=== PATIENT | male | born 1970 | race Caucasian/White ===

== ENCOUNTER 2020-07-04 11:27 | Inpatient (IN) | payer OTHER ==
[2020-07-04 12:24] LABS: ALT 91 U/L (4-49); AST 243 U/L (17-59); African American GFR (CKD) >90 (>60 ml/min/1.73 sqM); Albumin 3.3 g/dL (3.5-5.0); Alkaline Phosphatase 359 U/L (38-126); Anion Gap 9 mmol/L; Blood Urea Nitrogen 15 mg/dL (9-20); Calcium 8.1 mg/dL (8.4-10.2); Carbon Dioxide 25 mmol/L (22-30); Chloride 97 mmol/L (98-107); Glucose 178 mg/dL (74-99); Magnesium 1.6 mg/dL (1.6-2.3); Non-African American GFR(CKD) >90 (>60 ml/min/1.73 sqM); Potassium 4.1 mmol/L (3.5-5.1); Sodium 131 mmol/L (137-145); Total Bilirubin 4.4 mg/dL (0.2-1.3); Total Protein 6.5 g/dL (6.3-8.2)
[2020-07-04 12:31] LABS: INR 1.3 (<1.2); Partial Thromboplastin Time 26.2 sec (22.0-30.0); Prothrombin Time 13.1 sec (9.0-12.0)
[2020-07-04 12:45] LABS: Basophils # (A) 0.1 k/uL (0-0.2); Basophils % (A) 1 %; Eosinophils % (A) 0 %; HCT 37.5 % (39.0-53.0); HGB 12.5 gm/dL (13.0-17.5); Hypochromasia Slight; Lymphocytes # (A) 1.3 k/uL (1.0-4.8); Lymphocytes % (A) 19 %; MCH 38.3 pg (25.0-35.0); MCHC 33.2 g/dL (31.0-37.0); MCV 115.3 fL (80.0-100.0); Macrocytosis Marked; Mean Platelet Volume 8.7; Monocytes # (A) 0.5 k/uL (0-1.0); Monocytes % (A) 7 %; Neutrophils % (A) 72 %; Platelet Count 106 k/uL (150-450); RBC 3.26 m/uL (4.30-5.90); RDW 15.4 % (11.5-15.5)
--- NOTE | 2020-07-04 12:53 | US ---
EXAMINATION TYPE: US liver DATE OF EXAM: 07/04/2020 COMPARISON: NONE CLINICAL HISTORY: mild lUQ tenderness/etoh abuse. Elevated liver enzymes, enlarged liver, abdomen romero n EXAM MEASUREMENTS: Liver Length: 22.0 cm Gallbladder Wall: 0.4 cm CBD: 0.3 cm Right Kidney: 11.4 x 4.4 x 5.0 cm Pancreas: obscured by overlying midline bowel gas Liver: enlarged, attenuating Gallbladder: hydropic, mildly thickened wall at 0.4cm Evidence for sonographic Feldman's sign: no CBD: visualized portions wnl, limited by overlying bowel gas Right Kidney: wnl IMPRESSION: 1. Hepatomegaly with underlying hepatic fatty infiltration. 2. Gallbladder hydrops with mild gallbladder wall thickening.
[2020-07-04] MEDS ORDERED: THIAMINE 100 MG/ML 2 ML VIAL IM STA (13:08)
[2020-07-04] MEDS ORDERED: LORazepam 2 MG/ML INJ IV PRN ×3 (13:08)
[2020-07-04 13:19] LABS: Anisocytosis (M) Present; Poikilocytosis (M) Present
--- NOTE | 2020-07-04 13:20 | ED ---
Recheck HPI - General Chief Complaint: Recheck/Abnormal Lab/Rx Stated Complaint: detoxing Time Seen by Provider: 07/04/20 11:40 Source: patient, family Mode of arrival: ambulatory Limitations: no limitations - History of Present Illness Initial Comments: 50-year-old male presenting today for chief complaint of medical clearance for alcohol rehab. Patient states that he told facility he had RUQ pain. Norma states on 06/21/2019 he has labs drawn outpatient. Today he attempted to check into rehabiliation center and he discussed the labs values from his outpatient visit and they told him he needed to come to the ER for evaluation prior to checking into the ETOH detoxification program. Patient denies nausea, vomiting, he denies current abdominal pain, fevers. Denies dark or bloody stools> Patient dose on gross exam appear to have icterus and abdominal distention. Patient denies chest pain/dyspnea. Pt does admit to parathesias (tingling) of the hands and feet that has been going on for "months". Denies weakness, headaches, falls/trauma. He denies additional complaints. Upon arrival patient appears well nontoxic in no acute distress. - Related Data Home Medications Medication Instructions Recorded Confirmed No Known Home Medications 07/04/20 07/04/20 Allergies Allergy/AdvReac Type Severity Reaction Status Date / Time No Known Allergies Allergy Verified 07/04/20 12:30 Review of Systems ROS Statement: Those systems with pertinent positive or pertinent negative responses have been documented in the HPI. ROS Other: All systems not noted in ROS Statement are negative. Past Medical History Additional Past Medical History / Comment(s): liver disease History of Any Multi-Drug Resistant Organisms: None Reported Past Surgical History: No Surgical Hx Reported Past Psychological History: No Psychological Hx Reported Smoking Status: Current every day smoker Past Alcohol Use History: Abuse, Daily, Heavy Past Drug Use History: None Reported General Exam - General Exam Comments Initial Comments: General: The patient is awake and alert, in no distress Eye: +3 mm pupils are equal, round and reactive to light, extra-ocular movements are intact. No nystagmus. There is normal conjunctiva bilaterally. icterus. Ears, nose, mouth and throat: There are moist mucous membranes and no oral lesions. Neck: The neck is supple, there is no tenderness or JVD. Cardiovascular: There is a regular rate and rhythm. No murmur, rub or gallop is appreciated. Respiratory: Lungs are clear to auscultation, respirations are non-labored, breath sounds are equal. No wheezes, stridor, rales, or rhonchi. Gastrointestinal: Distended abdomen, mild RUQ Pain, (-) murphys abdomen without masses. liver enlargement. There is no rebound or guarding present. = Musculoskeletal: Normal ROM, no tenderness. Strength 5/5. Sensation intact. Radial pulses equal bilaterally 2+. Neurological: A&O x 3. CN II-XII intact grossly, There are no obvious motor or sensory deficits. Coordination appears grossly intact. Speech is normal. Skin: Skin is warm and dry and no rashes or lesions are noted. Psychiatric: Cooperative, appropriate mood & affect, normal judgment. Limitations: no limitations Course Vital Signs 07/04/20 07/04/20 11:31 13:58 Temperature 98.4 F Pulse Rate 107 H 81 Respiratory 18 18 Rate Blood Pressure 135/91 130/95 O2 Sat by Pulse 96 98 Oximetry Medical Decision Making - Medical Decision Making Bilirubin 4 mild abdominal pain with distention liver enlargement. patient has increased coagulation slightly. he is jaundice. pt us hydrops with mild thickening, no fevers. no white count. mild pain on exam. suspeted findings from chronic disease. pt will be admitted for further evaluation by GI due to severe liver disease. Dr Jackson agreeable to care plan and admission. - Lab Data Result diagrams: 07/04/20 12:02 07/04/20 12:02 Lab Results 07/04/20 07/04/20 07/04/20 Range/Units 12:02 12:02 12:02 WBC 7.0 (3.8-10.6) k/uL RBC 3.26 L (4.30-5.90) m/uL Hgb 12.5 L (13.0-17.5) gm/dL Hct 37.5 L (39.0-53.0) % MCV 115.3 H (80.0-100.0) fL MCH 38.3 H (25.0-35.0) pg MCHC 33.2 (31.0-37.0) g/dL RDW 15.4 (11.5-15.5) % Plt Count 106 L (150-450) k/uL MPV 8.7 Neutrophils % 72 % Lymphocytes % 19 % Monocytes % 7 % Eosinophils % 0 % Basophils % 1 % Neutrophils # 5.0 (1.3-7.7) k/uL Lymphocytes # 1.3 (1.0-4.8) k/uL Monocytes # 0.5 (0-1.0) k/uL Eosinophils # 0.0 (0-0.7) k/uL Basophils # 0.1 (0-0.2) k/uL Manual Slide Review Performed Hypochromasia Slight Poikilocytosis (manual Present Anisocytosis (manual) Present Macrocytosis Marked A PT 13.1 H (9.0-12.0) sec INR 1.3 H (<1.2) APTT 26.2 (22.0-30.0) sec Sodium 131 L (137-145) mmol/L Potassium 4.1 (3.5-5.1) mmol/L Chloride 97 L (98-107) mmol/L Carbon Dioxide 25 (22-30) mmol/L Anion Gap 9 mmol/L BUN 15 (9-20) mg/dL Creatinine 0.50 L (0.66-1.25) mg/dL Est GFR (CKD-EPI)AfAm >90 (>60 ml/min/1.73 sqM) Est GFR (CKD-EPI)NonAf >90 (>60 ml/min/1.73 sqM) Glucose 178 H (74-99) mg/dL Calcium 8.1 L (8.4-10.2) mg/dL Magnesium 1.6 (1.6-2.3) mg/dL Total Bilirubin 4.4 H (0.2-1.3) mg/dL AST 243 H (17-59) U/L ALT 91 H (4-49) U/L Alkaline Phosphatase 359 H (38-126) U/L Total Protein 6.5 (6.3-8.2) g/dL Albumin 3.3 L (3.5-5.0) g/dL Disposition Clinical Impression: Abdominal pain, Liver disease, Elevated bilirubin, Elevated liver enzymes Disposition: ADMITTED IP TO THIS [facility] Condition: Stable Is patient prescribed a controlled substance at d/c from ED?: No Referrals: None,Stated [Primary Care Provider] - 1-2 days Time of Disposition: 14:01 Decision to Admit Reason: Admit from EC Decision Date: 07/04/20 Decision Time: 14:02
[2020-07-04] MEDS ORDERED: NALOXONE 0.4 MG/ML 1 ML VIAL IV PRN (13:52)
[2020-07-04] MEDS: FOLIC ACID 1 MG TAB PO SCH (14:22)
[2020-07-04] MEDS: SODIUM CHLORIDE 0.9% 1,000 ML IV SCH (15:47)
[2020-07-04] MEDS ORDERED: TEMAZEPAM 15 MG CAP PO PRN (17:34)
[2020-07-04] MEDS: PANTOPRAZOLE 40 MG/10 ML VIAL IVP SCH (17:54)
[2020-07-04] MEDS: THIAMINE 100 MG TAB PO SCH (17:54)
[2020-07-04 18:10] LABS: Amylase 40 U/L (30-110); Lipase 148 U/L (23-300)
--- NOTE | 2020-07-04 18:32 | XR ---
EXAMINATION TYPE: XR chest 1V portable DATE OF EXAM: 07/04/2020 COMPARISON: NONE HISTORY: Right upper quadrant pain TECHNIQUE: Single view FINDINGS: Heart and mediastinum are normal. Lungs are clear. Diaphragm is normal. Bony thorax appears normal. IMPRESSION: Normal chest.
--- NOTE | 2020-07-04 20:15 | HP ---
HISTORY AND PHYSICAL DATE OF SERVICE: 07/04/2020 CHIEF COMPLAINTS: Hepatitis and medical clearance for rehab. HISTORY OF PRESENT ILLNESS: This 50-year-old gentleman with a past medical history of multiple medical issues, including ETOH abuse with numbness and history of smoking, not being followed by a primary physician in the outpatient setting, is living in the [facility]. The patient was drinking about a fifth of alcohol and because of abdominal discomfort and other issues, the patient went to an urgent care center in [place], where the patient was told that he had jaundice. However, the patient decided to check into [facility], and because of the outpatient abnormal labs, the patient was asked to return to the ER. The patient was also complaining of vague abdominal pain. The patient has tremors, also. There is no history of any fever, rigor or chills. No history of headache, loss of consciousness, seizures at this time. PAST MEDICAL HISTORY: History of EtOH abuse, history of polysubstance abuse. MEDICATIONS: None. ALLERGIES: NONE. FAMILY HISTORY: The patient is adopted. SOCIAL HISTORY: History of alcohol as mentioned. REVIEW OF SYSTEMS: ENT: No diminished hearing. No diminished vision. CARDIOVASCULAR SYSTEM: As mentioned earlier. RESPIRATORY SYSTEM: As mentioned earlier. GI: As mentioned earlier. : No dysuria or retention. NERVOUS SYSTEM: As mentioned earlier. ALLERGY/IMMUNOLOGY: No asthma, hayfever. MUSCULOSKELETAL: As mentioned earlier. HEMATOLOGY/ONCOLOGY: No history of anemia. ENDOCRINE: No history of diabetes, hypothyroidism. CONSTITUTIONAL: As mentioned earlier. DERMATOLOGY: Negative. RHEUMATOLOGY: Negative. PSYCHIATRY: As mentioned earlier. PHYSICAL EXAMINATION: Patient alert and oriented x3. Pulse 81, blood pressure 130/95, respiration 18, temperature 98.4, pulse ox 98% on room air. HEENT: Conjunctivae normal. NECK: No jugular venous distention. CARDIOVASCULAR SYSTEM: S1, S2 muffled. RESPIRATORY SYSTEM: Breath sounds diminished at the bases. A few scattered rhonchi and crackles. ABDOMEN: Soft, non-tender. No mass palpable. Mild diffuse discomfort in the upper quadrants. LEGS: No edema. No swelling. NERVOUS SYSTEM: Higher functions as mentioned earlier. Moves all 4 limbs. No focal motor or sensory deficit. LYMPHATICS: No lymph node palpable in neck, axillae or groin. SKIN: No ulcer, rash, bleeding. JOINTS: No active deforming arthropathy. LABS: WBC 7, hemoglobin 12.5, platelets are 106. INR 1.3. Sodium 131. Total bilirubin is 4.4, AST is 243 and ALT is 91, alkaline phosphatase 315. Albumin 3.3. ASSESSMENT: 1. Acute hepatitis, possibly alcoholic hepatitis. 2. Elevated AST and ALT, possibly alcoholic hepatitis. 3. Elevated alkaline phosphatase. 4. Hydrops gallbladder as well as gallbladder thickening. 5. Mild coagulopathy secondary to chronic liver disease. 6. Anemia, macrocytic. 7. Thrombocytopenia. 8. History of ETOH. 9. History of nicotine dependence. 10.FULL CODE. RECOMMENDATIONS AND DISCUSSION: In this 50-year-old gentleman who presented with multiple complex medical issues, we will monitor the patient closely. Will look for any DTs and alcohol withdrawal symptoms. Otherwise, labs will be repeated. Avoid all nephrotoxic medications, including Tylenol. Gastroenterology has seen the patient. Will continue to monitor. There is no evidence of any encephalopathy at this time. The prognosis is guarded because of multiple complex medical issues. Further recommendations to follow. I have recommended that the patient follow up with a primary physician closely after discharge. Symptomatic treatment also will be provided. MMODL / IJN: [id number] /
[2020-07-04 20:19] LABS: Appearance,Urine Clear (Clear); Bilirubin,Urine Negative (Negative); Blood,Urine Negative (Negative); Color,Urine Yellow; Glucose,Urine (UA) Negative (Negative); Ketones,Urine Negative (Negative); Leukocyte Esterase,Urine Negative (Negative); Nitrite,Urine Negative (Negative); Protein,Urine Negative (Negative); Specific Gravity,Urine 1.012 (1.001-1.035); Urobilinogen,Urine <2.0 mg/dL (<2.0)
--- NOTE | 2020-07-04 22:17 | CONS ---
CONSULTATION DATE OF DICTATION: 07/04/2020 REASON FOR CONSULTATION: Elevated LFTs and jaundice. HISTORY OF PRESENT ILLNESS: The patient is a 50-year-old pleasant white male with a history of heavy alcohol abuse who was sent from [facility], wherein the patient wanted to get admitted for alcohol rehabilitation. Apparently while he was there he had some labs done and was noted to have elevated LFTs and he was complaining of some right upper quadrant abdominal pain, and he was advised to go to the emergency room at [facility]. The patient states that he went to the Urgent Care Center in [place] about 2 weeks ago and was told his liver enzymes were elevated. At present he is complaining of some right upper quadrant abdominal pain, some nausea but no emesis. No rectal bleeding or melena. No fever, chills or night sweats. He denies any abdominal distention. He has been drinking heavily for the last 25 years. He drinks about a fifth a day. PAST MEDICAL HISTORY: Unremarkable other than heavy alcohol abuse. PAST SURGICAL HISTORY: Unremarkable. HOME MEDICATIONS: None. ALLERGIES: NO KNOWN DRUG ALLERGIES. SOCIAL HISTORY: Heavy alcohol abuse, as mentioned above. Chronic smoker. FAMILY HISTORY: Unremarkable. REVIEW OF SYSTEMS: CARDIOPULMONARY: No chest pain or shortness of breath. GENITOURINARY: No dysuria or hematuria except for yellowish discoloration of the urine. HEMATOLOGY: Unremarkable. PSYCHIATRY: Unremarkable. ENT/VISION: Unremarkable. CONSTITUTIONAL: No recent weight loss. No fever, chills, night sweats. PHYSICAL EXAMINATION: He appears comfortable. No apparent distress. Vital signs are stable. Blood pressure is 133/89, pulse rate 88, temperature 97.7. HEENT examination unremarkable. Conjunctivae pink. Sclerae slightly icteric. Oral cavity no lesions. NECK: No JVD or lymph node enlargement. CHEST: Clear to auscultation. HEART: Regular rate and rhythm. ABDOMEN: Soft. Bowel sounds are positive. No organomegaly. There is tenderness in the right upper quadrant area. Liver was slightly enlarged. No free fluid noted. EXTREMITIES: No pedal edema. NEUROLOGIC: Alert and oriented x3. No focal deficits. LABS/IMAGING: WBC 7, hemoglobin 12.5, MCV 115, platelets 106. PT and INR 1.3. AST 243, ALT 91, T- bilirubin 4.4, alkaline phosphatase 359. Albumin 3.3. Coronavirus PCR is negative. Ultrasound of the liver did show evidence of hepatomegaly with fatty infiltration of the liver and mild gallbladder wall thickening. IMPRESSION: 1. This is a patient with history of heavy alcohol abuse, admitted to the hospital with elevated liver function tests, mild jaundice and right upper quadrant abdominal pain, all of which are consistent with acute alcoholic hepatitis superimposed on underlying cirrhosis of the liver. The patient has history of heavy alcohol abuse for more than 25 years' duration and drinks a fifth a day. 2. Mild thrombocytopenia secondary to portal hypertension from underlying chronic liver disease. 3. History of heavy alcohol abuse. 4. Macrocytic anemia. RECOMMENDATIONS: 1. Obtain hepatitis serologies for A, B and C. 2. Start him on a regular diet. 3. Monitor closely for DTs. 4. Continue with vitamin supplements. 5. Advance diet as tolerated. 6. I had a lengthy discussion with the patient regarding the importance of abstinence from alcohol, given the underlying advanced liver disease. 7. Will follow with you closely. Thank you for this consultation. MMMARIANL / IJN: [id number] /
[2020-07-05] MEDS: SODIUM CHLORIDE 0.9% 1,000 ML IV SCH ×2 (00:39→12:43)
[2020-07-05 05:36] LABS: Hepatitis A Antibody IgM Non-Reactive (Non-Reactive); Hepatitis B Core IgM Non-Reactive (Non-Reactive); Hepatitis B Surface Antigen Non-Reactive (Non-Reactive); Hepatitis C IgG Antibody Non-Reactive (Non-Reactive)
[2020-07-05] MEDS: THIAMINE 100 MG TAB PO SCH ×2 (08:34→17:13)
[2020-07-05] MEDS: PANTOPRAZOLE 40 MG/10 ML VIAL IVP SCH (08:34)
[2020-07-05] MEDS: FOLIC ACID 1 MG TAB PO SCH (08:34)
[2020-07-05 09:14] LABS: HCT 29.9 % (39.6-50.0); HGB 10.1 g/dL (13.0-17.0); MCH 38.7 pg (27.0-32.0); MCHC 33.8 g/dL (32.0-37.0); MCV 114.6 fL (80.0-97.0); Mean Platelet Volume 12.3 fL (9.5-12.2); Platelet Count 104 X 10*3/uL (140-440); RBC 2.61 X 10*6/uL (4.40-5.60); RDW 13.3 % (11.5-14.5); WBC 5.08 X 10*3/uL (4.50-10.00)
[2020-07-05 10:13] LABS: African American GFR (CKD) 137.8 (60.0-200.0); Albumin 2.9 g/dL (3.80-4.90); Albumin/Globulin Ratio 1.53 (1.60-3.17); Anion Gap 6.6 mmol/L (4.00-12.00); Bilirubin, Conjugated 3.3 mg/dL (0.20-0.40); Bilirubin,Unconjugated 1.2 mg/dL; Calcium 8.2 mg/dL (8.7-10.3); Carbon Dioxide 27.4 mmol/L (21.6-31.8); Globulin 1.9 g/dL (1.6-3.3); Non-African American GFR(CKD) 118.9 (60.0-200.0); Potassium 4.1 mmol/L (3.5-5.5); Total Bilirubin 4.5 mg/dL (0.2-1.2); Total Protein 4.8 g/dL (6.2-8.2)
[2020-07-05 10:58] LABS: Basophils # (A) 0.06 X 10*3/uL (0.00-0.10); Basophils % (A) 1.2 %; Eosinophils # (A) 0.05 X 10*3/uL (0.04-0.35); Lymphocytes # (A) 1.44 X 10*3/uL (0.90-5.00); Lymphocytes % (A) 28.3 %; Macrocytosis (M) 3+; Monocytes # (A) 0.51 X 10*3/uL (0.20-1.00); Neutrophils # (A) 2.99 X 10*3/uL (1.80-7.70); Neutrophils % (A) 58.9 %; Target Cells 2+
--- NOTE | 2020-07-05 12:40 | P.PN ---
Subjective Progress Note Date: 07/06/20 Principal diagnosis: elevated liver function tests, history of EtOH abuse C 50-year-old pleasant white male patient with a history of heavy alcohol abuse who was sent in from [facility] or the patient wanted get admitted for alcohol rehabilitation. Apparently while he was there he was reporting some right upper quadrant discomfort and had some labs done that showed elevated liver enzymes, for which he was sent to the emergency department. Today he states his abdominal and has improved. He still states he has some dull right upper quadrant discomfort. He denies any nausea or vomiting. Denies any previous knowledge of any liver disease. And had admitted to drinking a fifth a day for at least the last 5-10 years. Objective - Vital Signs Vital signs: Vital Signs Temp 98.9 F 07/05/20 08:58 Pulse 69 07/05/20 08:58 Resp 17 07/05/20 08:58 BP 124/84 07/05/20 08:58 Pulse Ox 98 07/05/20 08:58 Intake & Output 07/04/20 07/05/20 07/05/20 18:59 06:59 18:59 Intake Total 1200 Balance 1200 Weight 76.204 kg Intake: Intake, IV Titration 1200 Amount Sodium Chloride 0.9% 1, 1200 000 ml @ 100 mls/hr IV . Q10H [facility] Rx#:[id number] Other: Voiding Method Toilet Toilet - Exam General appearance: The patient is alert, oriented, in no acute distress. HET: Head is normocephalic and atraumatic. Conjunctiva pink. Sclera mildly icteric. Neck: Supple without lymphadenopathy. Abdomen: Soft, nontender, nondistended with bowel sounds. No guarding or rigidity. Extremities: Skin mildly jaundiced. No pedal edema Neurological: No focal deficits. Alert and oriented 3. - Labs CBC & Chem 7: 07/05/20 05:54 07/05/20 05:54 Labs: Abnormal Lab Results - Last 24 Hours (Table) 07/04/20 07/04/20 07/04/20 Range/Units 12:02 12:02 12:02 RBC 3.26 L (4.30-5.90) m/uL Hgb 12.5 L (13.0-17.5) gm/dL Hct 37.5 L (39.0-53.0) % MCV 115.3 H (80.0-100.0) fL MCH 38.3 H (25.0-35.0) pg Plt Count 106 L (150-450) k/uL MPV (9.5-12.2) fL Macrocytosis Marked A PT 13.1 H (9.0-12.0) sec INR 1.3 H (<1.2) Sodium 131 L (137-145) mmol/L Chloride 97 L (98-107) mmol/L Creatinine 0.50 L (0.66-1.25) mg/dL Glucose 178 H (74-99) mg/dL Calcium 8.1 L (8.4-10.2) mg/dL Total Bilirubin 4.4 H (0.2-1.3) mg/dL AST 243 H (17-59) U/L ALT 91 H (4-49) U/L Alkaline Phosphatase 359 H (38-126) U/L Albumin 3.3 L (3.5-5.0) g/dL 07/05/20 Range/Units 05:54 RBC 2.61 L (4.30-5.90) m/uL Hgb 10.1 L (13.0-17.5) gm/dL Hct 29.9 L (39.0-53.0) % MCV 114.6 H (80.0-100.0) fL MCH 38.7 H (25.0-35.0) pg Plt Count 104 L (150-450) k/uL MPV 12.3 H (9.5-12.2) fL Macrocytosis PT (9.0-12.0) sec INR (<1.2) Sodium (137-145) mmol/L Chloride (98-107) mmol/L Creatinine (0.66-1.25) mg/dL Glucose (74-99) mg/dL Calcium (8.4-10.2) mg/dL Total Bilirubin (0.2-1.3) mg/dL AST (17-59) U/L ALT (4-49) U/L Alkaline Phosphatase (38-126) U/L Albumin (3.5-5.0) g/dL Assessment and Plan (1) Elevated liver enzymes Narrative/Plan: This is a 50-year-old male patient with a history of heavy alcohol abuse admitted to the hospital with elevated liver function tests, mild jaundice and right upper quadrant abdominal pain. The symptoms are consistent with acute alcoholic hepatitis superimposed on underlying cirrhosis of the liver. The patient has a history of heavy alcohol abuse or more than 25 years duration drinks a fifth a day. Current Visit: Yes Status: Acute Code(s): R74.8 - ABNORMAL LEVELS OF OTHER SERUM ENZYMES SNOMED Code(s): 296554858 (2) Alcohol abuse Current Visit: Yes Status: Acute Code(s): F10.10 - ALCOHOL ABUSE, UNCOM PLICATED SNOMED Code(s): 99003937 (3) Elevated bilirubin Current Visit: Yes Status: Acute Code(s): R17 - UNSPECIFIED JAUNDICE SNOMED Code(s): 44529477 (4) Thrombocytopenia Narrative/Plan: Mild thrombocytopenia secondary to portal hypertension from underlying chronic liver disease Current Visit: Yes Status: Acute Code(s): D69.6 - THROMBOCYTOPENIA, UNSPECIFIED SNOMED Code(s): 912662176 (5) Macrocytic anemia Current Visit: Yes Status: Acute Code(s): D53.9 - NUTRITIONAL ANEMIA, UNSPECIFIED SNOMED Code(s): 49539095 Plan: 1. Supportive care 2. Regular diet 3. Hepatitis serology for A, B, and C ordered and reviewed 4. Monitor closely for alcohol withdrawal and DTs 5. Continue with vitamin supplements 6. Recommended alcohol abstinence, discussion with had with the patient regarding the importance of abstinence from alcohol given the underlying advanced liver disease. Thank you for this consultation, we will follow with you closely. Dr. Beatrice Preston I agree with the dictator's note, documented as a scribe by Yas Gomez.
[2020-07-05] MEDS: MULTIVITAMINS, THERA 1 EACH TAB PO SCH (12:43)
[2020-07-05] MEDS: IOPAMIDOL CONTRAST (ORAL USE) VIAL PO PRN ×2 (18:27→19:01)
--- NOTE | 2020-07-05 18:56 | PN ---
PROGRESS NOTE DATE OF SERVICE: 07/05/2020 This 50-year-old gentleman who was admitted with acute alcoholic hepatitis also had possible early delirium tremens. The patient is being closely monitored. No chest pain. No palpitations. No fever. The potassium is 4.1, and bilirubin today is 4.5, mostly conjugated bilirubin. AST and ALT were also elevated. The UA is unremarkable. Hepatitis panel is negative. COVID-19 is also negative. PHYSICAL EXAMINATION: Alert and oriented x3. Pulse is 80, blood pressure 115/81, respiration 17, temperature 98.2, pulse ox 96% on room air. HEENT: Conjunctivae mildly icteric. NECK: No jugular venous distention. CARDIOVASCULAR SYSTEM: S1, S2 muffled. RESPIRATORY SYSTEM: Breath sounds diminished at the bases. A few scattered rhonchi and crackles. ABDOMEN: Soft. Hepatomegaly and tenderness present. NERVOUS SYSTEM: No focal deficit. LABS: Hemoglobin 10.1, platelets are 104. Other labs are noted. ASSESSMENT: 1. Acute hepatitis, possibly alcoholic hepatitis with abdominal pain. 2. Early delirium tremens on presentation. 3. Elevated AST and ALT; acute alcoholic hepatitis. 4. Hepatomegaly. 5. Elevated alkaline phosphatase. 6. Hydrops gallbladder as well as gallbladder thickening. 7. Mild coagulopathy secondary to chronic liver disease. 8. Anemia, macrocytic. 9. Thrombocytopenia. 10.History of ETOH. 11.History of nicotine dependence. 12.FULL CODE. RECOMMENDATIONS AND DISCUSSION: I recommend to continue current medications, continue with the monitoring, symptomatic treatment. Continue the diet. Repeat labs. I would also recommend a surgical evaluation because of the hydrops gallbladder and continue to monitor. Guarded prognosis. Further recommendations to follow. Liver ultrasound noted. MMODL / IJN: [id number] /
--- NOTE | 2020-07-05 20:06 | CT ---
EXAMINATION TYPE: CT abdomen pelvis wo con DATE OF EXAM: 07/05/2020 COMPARISON: None HISTORY: Abdominal pain, hepatomegaly CT DLP: 807 mGycm Automated exposure control for dose reduction was used. Images obtained from the diaphragm to the floor the pelvis with oral contrast only. The lung bases are clear. There is no pleural effusion. Heart size is normal. There is no pericardial effusion. Liver spleen pancreas gallbladder appear intact. Liver is enlarged and measures 25 cm in length. Bile ducts are not dilated. There is no adrenal mass. Kidneys have normal size and contour. There is no hydronephrosis. Ureters a re not dilated. There is no retroperitoneal adenopathy. The bladder distends smoothly. There is small amount of free fluid in the cul-de-sac. There is normal contrast opacification of the small bowel. T he appendix appears normal. Terminal ileum appears normal. The lumbar vertebra have normal spacing and alignment. There is no compression fracture. There is jaja ateral L5 spondylolysis without significant spondylolisthesis. Bony pelvis is intact. The hip joints are intact. IMPRESSION: Normal appendix. Hepatomegaly. No acute abnormality of the abdomen pelvis.
[2020-07-06] MEDS: SODIUM CHLORIDE 0.9% 1,000 ML IV SCH ×2 (03:51→17:15)
[2020-07-06] MEDS: FOLIC ACID 1 MG TAB PO SCH (07:25)
[2020-07-06] MEDS: THIAMINE 100 MG TAB PO SCH ×2 (07:25→17:15)
[2020-07-06] MEDS: PANTOPRAZOLE 40 MG/10 ML VIAL IVP SCH (08:12)
[2020-07-06] MEDS: MULTIVITAMINS, THERA 1 EACH TAB PO SCH (08:13)
--- NOTE | 2020-07-06 11:15 | P.PN ---
Subjective Progress Note Date: 07/06/20 Principal diagnosis: elevated liver function tests, history of EtOH abuse C 50-year-old pleasant white male patient with a history of heavy alcohol abuse who was sent in from [facility] or the patient wanted get admitted for alcohol rehabilitation. Apparently while he was there he was reporting some right upper quadrant discomfort and had some labs done that showed elevated liver enzymes, for which he was sent to the emergency department. Today he states his abdominal and has improved. He still states he has some dull right upper quadrant discomfort, but states it continues to improve. He denies any nausea or vomiting. He states he has not felt shaky, anxious, felt like he is been going through withdrawal. Plan is for discharge to [facility] for rehab. Objective - Vital Signs Vital signs: Vital Signs Temp 97.9 F 07/06/20 07:29 Pulse 77 07/06/20 09:58 Resp 17 07/06/20 07:29 BP 109/71 07/06/20 07:29 Pulse Ox 98 07/06/20 07:29 Intake & Output 07/05/20 07/06/20 07/06/20 18:59 06:59 18:59 Intake Total 1200 1200 Balance 1200 1200 Intake: Intake, IV Titration 1200 1200 Amount Sodium Chloride 0.9% 1, 1200 1200 000 ml @ 100 mls/hr IV . Q10H [facility] Rx#:[id number] Other: Voiding Method Toilet Toilet Toilet # Voids 5 - Exam General appearance: The patient is alert, oriented, in no acute distress. HET: Head is normocephalic and atraumatic. Conjunctiva pink. Sclera mildly icteric. Neck: Supple without lymphadenopathy. Abdomen: Soft, nontender, nondistended with bowel sounds. No guarding or rigidity. Extremities: Skin mildly jaundiced. No pedal edema Neurological: No focal deficits. Alert and oriented 3. - Labs CBC & Chem 7: 07/05/20 05:54 07/05/20 05:54 Assessment and Plan (1) Elevated liver enzymes Narrative/Plan: This is a 50-year-old male patient with a history of heavy alcohol abuse admitted to the hospital with elevated liver function tests, mild jaundice and right upper quadrant abdominal pain. The symptoms are consistent with acute alcoholic hepatitis superimposed on underlying cirrhosis of the liver. The p atient has a history of heavy alcohol abuse or more than 25 years duration drinks a fifth a day. Current Visit: Yes Status: Acute Code(s): R74.8 - ABNORMAL LEVELS OF OTHER SERUM ENZYMES SNOMED Code(s): 513110375 (2) Alcohol abuse Current Visit: Yes Status: Acute Code(s): F10.10 - ALCOHOL ABUSE, U NCOMPLICATED SNOMED Code(s): 90566666 (3) Elevated bilirubin Current Visit: Yes Status: Acute Code(s): R17 - UNSPECIFIED JAUNDICE SNOMED Code(s): 03252769 (4) Thrombocytopenia Narrative/Plan: Mild thrombocytopenia secondary to portal hypertension from underlying chronic liver disease Current Visit: Yes Status: Acute Code(s): D69.6 - THROMBOCYTOPENIA, UNSPECIFIED SNOMED Code(s): 023547666 (5) Macrocytic anemia Current Visit: Yes Status: Acute Code(s): D53.9 - NUTRITIONAL ANEMIA, UNSPECIFIED SNOMED Code(s): 84164170 Plan: 1. Supportive care 2. Regular diet 3. Hepatitis serology for A, B, and C ordered and reviewed 4. Monitor closely for alcohol withdrawal and DTs 5. Continue with vitamin supplements 6. Recommended alcohol abstinence, discussion was had with the patient regarding the importance of abstinence from alcohol given the underlying advanced liver disease. Thank you for this consultation, we will sign off at this time. Patient is to have outpatient follow-up within the next few weeks following rehab for continued monitoring of LFTs. Dr. Beatrice Preston I agree with the dictator's note, documented as a scribe by Yas Gomez.
[2020-07-06 11:25] LABS: Basophils # (A) 0.03 X 10*3/uL (0.00-0.10); Basophils % (A) 0.6 %; Eosinophils # (A) 0.03 X 10*3/uL (0.04-0.35); Eosinophils % (A) 0.6 %; HCT 28.9 % (39.6-50.0); HGB 9.8 g/dL (13.0-17.0); Lymphocytes # (A) 1.41 X 10*3/uL (0.90-5.00); MCH 38.7 pg (27.0-32.0); MCHC 33.9 g/dL (32.0-37.0); MCV 114.2 fL (80.0-97.0); Mean Platelet Volume 12.1 fL (9.5-12.2); Monocytes # (A) 0.41 X 10*3/uL (0.20-1.00); Monocytes % (A) 8.7 %; Neutrophils # (A) 2.78 X 10*3/uL (1.80-7.70); Neutrophils % (A) 59.2 %; Platelet Count 118 X 10*3/uL (140-440); RBC 2.53 X 10*6/uL (4.40-5.60); RDW 13.3 % (11.5-14.5)
[2020-07-06] MEDS: IBUPROFEN 400 MG TAB PO PRN (12:09)
[2020-07-06 12:25] LABS: African American GFR (CKD) 162.8 (60.0-200.0); Albumin 2.9 g/dL (3.80-4.90); Albumin/Globulin Ratio 1.45 (1.60-3.17); Anion Gap 6.8 mmol/L (4.00-12.00); BUN/Creat Ratio 17.5 Ratio (12.00-20.00); Calcium 8.2 mg/dL (8.7-10.3); Carbon Dioxide 26.2 mmol/L (21.6-31.8); Non-African American GFR(CKD) 140.5 (60.0-200.0); Total Bilirubin 3.7 mg/dL (0.3-1.2); Total Protein 4.9 g/dL (6.2-8.2)
[2020-07-06] MEDS: SULFAMETHOX-TMP 800-160MG 1 EACH TAB PO SCH ×2 (12:25→21:23)
--- NOTE | 2020-07-06 13:00 | P.GSCN ---
History of Present Illness Consult date: 07/06/20 History of present illness: CHIEF COMPLAINT: Right upper quadrant abdominal pain HISTORY OF PRESENT ILLNESS: This is a 50-year-old male with a known history of alcohol abuse. Patient presented to the emergency room with complaints of right upper quadrant pain. He was sent from [place] where he was admitted for alcohol rehabilitation. Patient reports having right upper quadrant pain for about 2-3 weeks. He notices more pain with movement. He denies any nausea or vomiting. The pain does not get worse after eating. He denies any fever or chills or sweats. He had a liver ultrasound completed which showed gallbladder hydrops with mild gallbladder wall thickening and hepatomegaly with underlying hepatic fatty infiltration. Computed tomography scan of the abdomen shows normal appendix. Hepatomegaly. No acute abnormality of the abdomen and pelvis. Patient does have elevated liver function studies likely due to his chronic alcohol use. GI service follow-up. PAST MEDICAL HISTORY: See list. PAST SURGICAL HISTORY: See list. MEDICATIONS: See list. ALLERGIES: See list. SOCIAL HISTORY: No illicit drug use. REVIEW OF SYSTEMS: CONSTITUTIONAL: Denies fever or chills. HEENT: Denies blurred vision, vision changes, or eye pain. Denies hemoptysis CARDIOVASCULAR: Denies chest pain or pressure. RESPIRATORY: No shortness of breath. GASTROINTESTINAL: See HPI for pertinent findings HEMATOLOGIC: Denies bleeding disorders. GENITOURINARY: Denies any blood in urine or increased urinary frequency. SKIN: Denies pruitis. Denies rash. PHYSICAL EXAM: VITAL SIGNS: Reviewed GENERAL: Well-developed in no acute distress. HEENT: No sclera icterus. Extraocular movements grossly intact. Moist buccal mucosa. Head is atraumatic, normocephalic. No nasal drainage. ABDOMEN: Soft. Right upper quadrant tenderness. Nondistended. Enlarged liver NEUROLOGIC: Alert and oriented. Cranial nerves II through XII grossly intact. LABORATORY DATA: WBC 4.7 hemoglobin 9.8 platelets 118 Total bilirubin 3.7 AST 116 ALT 58 alk phos 326 IMAGING: liver ultrasound completed which showed gallbladder hydrops with mild gallbladder wall thickening and hepatomegaly with underlying hepatic fatty infiltration. Computed tomography scan of the abdomen shows normal appendix. Hepatomegaly. No acute abnormality of the abdomen and pelvis. ASSESSMENT: 1. Right upper quadrant abdominal pain 2. Gallbladder hydrops and mild gallbladder wall thickening noted on abdominal ultrasound 3. Alcoholic hepatitis 4. Daily alcohol use PLAN: -Plan for outpatient cholecystectomy -Follow up on LFTs in a.m. -Continue regular diet Thank you for this consultation Physician Design Sales Consultant note has been reviewed by physician. Signing provider agrees with the documented findings, assessment, and plan of care. Past Medical History Additional Past Medical History / Comment(s): ETOH abuse, alcohol withdrawal with nausea/tremors/nightmares, bilateral arms/legs numness past 2 months, R shoulder pain/muscle deterioration-cause unknown. History of Any Multi-Drug Resistant Organisms: None Reported Past Surgical History: No Surgical Hx Reported Past Anesthesia/Blood Transfusion Reactions: Unable to Obtain, Motion Sickness Past Psychological History: No Psychological Hx Reported Additional Psychological History / Comment(s): Pt resides with friends. He can drive. He has a job. Pt is attempting to get into rehab for alcohol, c/o side pain and sent to ER for evaluation. Smoking Status: Current every day smoker Past Alcohol Use History: Abuse, Daily, Heavy Additional Past Alcohol Use History / Comment(s): Pt drinks 1/5 of rum per day. He last drank 07/03/20. Past Drug Use History: None Reported - Past Family History Father History Unknown: Yes Additional Family Medical History / Comment(s): Pt is adopted Mother History Unknown: Yes Additional Family Medical History / Comment(s): Pt is adopted Medications and Allergies Home Medications Medication Instructions Recorded Confirmed Type No Known Home Medications 07/04/20 07/04/20 History Allergies Allergy/AdvReac Type Severity Reaction Status Date / Time No Known Allergies Allergy Verified 07/04/20 12:30 Surgical - Exam Vital Signs Temp Pulse Resp BP Pulse Ox 98.4 F 107 H 18 135/91 96 07/04/20 11:31 07/04/20 11:31 07/04/20 11:31 07/04/20 11:31 07/04/20 11:31 Results - Labs 07/06/20 07:09 07/06/20 07:09 Abnormal Lab Results - Last 24 Hours (Table) 07/06/20 07/06/20 Range/Units 07:09 07:09 RBC 2.53 L (4.40-5.60) X 10*6/uL Hgb 9.8 L (13.0-17.0) g/dL Hct 28.9 L (39.6-50.0) % MCV 114.2 H (80.0-97.0) fL MCH 38.7 H (27.0-32.0) pg Plt Count 118 L (140-440) X 10*3/uL Absolute Nucleated RBC 0.02 H (0.00-0.00) X 10*3/uL Eosinophils # 0.03 L (0.04-0.35) X 10*3/uL NRBC/100 WBC Diff 0.4 H (0.0-0.0) /100 WBCS BUN 7.0 L (9.0-27.0) mg/dL Creatinine 0.4 L (0.6-1.5) mg/dL Glucose 116 H (70-110) mg/dL Calcium 8.2 L (8.7-10.3) mg/dL Total Bilirubin 3.7 H (0.3-1.2) mg/dL AST 116 H (14-35) U/L ALT 58 H (10-49) U/L Alkaline Phosphatase 326 H (41-126) U/L Total Protein 4.9 L (6.2-8.2) g/dL Albumin 2.90 L (3.80-4.90) g/dL Albumin/Globulin Ratio 1.45 L (1.60-3.17) g/dL Diabetes panel 07/06/20 Range/Units 07:09 Sodium 136 (135-145) mmol/L Potassium 4.0 (3.5-5.5) mmol/L Chloride 103 (96-109) mmol/L Carbon Dioxide 26.2 (21.6-31.8) mmol/L BUN 7.0 L (9.0-27.0) mg/dL Creatinine 0.4 L (0.6-1.5) mg/dL Glucose 116 H (70-110) mg/dL Calcium 8.2 L (8.7-10.3) mg/dL AST 116 H (14-35) U/L ALT 58 H (10-49) U/L Alkaline Phosphatase 326 H (41-126) U/L Total Protein 4.9 L (6.2-8.2) g/dL Albumin 2.90 L (3.80-4.90) g/dL Calcium panel 07/06/20 Range/Units 07:09 Calcium 8.2 L (8.7-10.3) mg/dL Albumin 2.90 L (3.80-4.90) g/dL Pituitary panel 07/06/20 Range/Units 07:09 Sodium 136 (135-145) mmol/L Potassium 4.0 (3.5-5.5) mmol/L Chloride 103 (96-109) mmol/L Carbon Dioxide 26.2 (21.6-31.8) mmol/L BUN 7.0 L (9.0-27.0) mg/dL Creatinine 0.4 L (0.6-1.5) mg/dL Glucose 116 H (70-110) mg/dL Calcium 8.2 L (8.7-10.3) mg/dL Adrenal panel 07/06/20 Range/Units 07:09 Sodium 136 (135-145) mmol/L Potassium 4.0 (3.5-5.5) mmol/L Chloride 103 (96-109) mmol/L Carbon Dioxide 26.2 (21.6-31.8) mmol/L BUN 7.0 L (9.0-27.0) mg/dL Creatinine 0.4 L (0.6-1.5) mg/dL Glucose 116 H (70-110) mg/dL Calcium 8.2 L (8.7-10.3) mg/dL Total Bilirubin 3.7 H (0.3-1.2) mg/dL AST 116 H (14-35) U/L ALT 58 H (10-49) U/L Alkaline Phosphatase 326 H (41-126) U/L Total Protein 4.9 L (6.2-8.2) g/dL Albumin 2.90 L (3.80-4.90) g/dL
--- NOTE | 2020-07-06 15:45 | PN ---
PROGRESS NOTE DATE OF SERVICE: 07/06/2020 This 50-year-old gentleman admitted with acute alcohol withdrawal and delirium tremens and acute alcoholic hepatitis also had a CT scan of the abdomen and pelvis which showed a normal appendix, hepatomegaly. Surgery has seen the patient also and recommended outpatient cholecystectomy. No chest pain. No palpitations. No fever. PHYSICAL EXAMINATION: Alert and oriented x3. Pulse is 69, blood pressure 107/72, respirations 16, temperature 97.8, pulse ox 97% on room air. HEENT: Conjunctivae normal. NECK: No jugular venous distention. CARDIOVASCULAR SYSTEM: S1, S2 muffled. RESPIRATORY SYSTEM: Breath sounds diminished at the bases. No rhonchi. No crackles. ABDOMEN: Soft. Mild diffuse tenderness in the right upper quadrant. Hepatomegaly tender present. LABS: WBC 4.6, hemoglobin 9.8, and MCV 114.2. Total bilirubin is 3.7 and AST is 16, ALT 58. noted. COVID-19 is negative. ASSESSMENT: 1. Acute alcoholic hepatitis as well as abdominal pain with hepatomegaly. 2. Early delirium tremens, present on admission. 3. Elevated AST and ALT, acute alcoholic hepatitis. 4. Elevated alkaline phosphatase. 5. Hydrops gallbladder as well as gallbladder thickening on ultrasound. 6. Mild coagulopathy secondary to chronic liver disease. 7. Anemia, macrocytic. 8. Thrombocytopenia. 9. History of ETOH. 10.History of nicotine dependence. 11.FULL CODE. RECOMMENDATIONS AND DISCUSSION: I recommend to continue current medications, continue with the monitoring, symptomatic treatment. Avoid nephrotoxic medications. Repeat labs. Increase ambulation. Otherwise, continue with [facility] protocol and once the patient is improved, we can send the patient to [place] for continued rehab. MMODL / IJN: [id number] / JOLLY
[2020-07-07] MEDS: SODIUM CHLORIDE 0.9% 1,000 ML IV SCH ×2 (02:43→04:51)
[2020-07-07] MEDS: PANTOPRAZOLE 40 MG/10 ML VIAL IVP SCH (07:58)
[2020-07-07] MEDS: IBUPROFEN 400 MG TAB PO PRN (08:10)
[2020-07-07] MEDS: THIAMINE 100 MG TAB PO SCH (08:12)
[2020-07-07] MEDS: FOLIC ACID 1 MG TAB PO SCH (08:12)
[2020-07-07] MEDS: SULFAMETHOX-TMP 800-160MG 1 EACH TAB PO SCH (08:12)
[2020-07-07 10:50] LABS: Anisocytosis (M) 2+; Basophils # (A) 0.04 X 10*3/uL (0.00-0.10); Basophils % (A) 0.8 %; Eosinophils # (A) 0.03 X 10*3/uL (0.04-0.35); Eosinophils % (A) 0.6 %; HCT 30.8 % (39.6-50.0); HGB 10.2 g/dL (13.0-17.0); Lymphocytes # (A) 1.35 X 10*3/uL (0.90-5.00); Lymphocytes % (A) 27.6 %; MCH 38.8 pg (27.0-32.0); MCHC 33.1 g/dL (32.0-37.0); MCV 117.1 fL (80.0-97.0); Macrocytosis (M) 2+; Mean Platelet Volume 11.4 fL (9.5-12.2); Monocytes % (A) 8.2 %; Neutrophils # (A) 3.03 X 10*3/uL (1.80-7.70); Neutrophils % (A) 61.8 %; Platelet Count 146 X 10*3/uL (140-440); Polychromasia 2+; RBC 2.63 X 10*6/uL (4.40-5.60); RDW 13.7 % (11.5-14.5); Stomatocytes 2+; Target Cells 2+
[2020-07-07 10:56] LABS: African American GFR (CKD) 137.8 (60.0-200.0); Albumin 3.1 g/dL (3.80-4.90); Albumin/Globulin Ratio 1.48 (1.60-3.17); Anion Gap 4.7 mmol/L (4.00-12.00); Calcium 8.3 mg/dL (8.7-10.3); Carbon Dioxide 27.3 mmol/L (21.6-31.8); Globulin 2.1 g/dL (1.6-3.3); Non-African American GFR(CKD) 118.9 (60.0-200.0); Potassium 4.2 mmol/L (3.5-5.5); Total Protein 5.2 g/dL (6.2-8.2)
--- NOTE | 2020-07-07 11:37 | P.PN ---
Subjective Progress Note Date: 07/07/20 CHIEF COMPLAINT: Right upper quadrant abdominal pain HISTORY OF PRESENT ILLNESS: Patient reports improvement in his abdominal pain. Denies any nausea or vomiting. Tolerated regular diet. LFTs are trending downwards. Afebrile. WBC 4.90 AST 88 ALT 54 alk phos 351 total bili 3.0 PHYSICAL EXAM: VITAL SIGNS: Reviewed. GENERAL: Well-developed in no acute distress. HEENT: No sclera icterus. Extraocular movements grossly intact. Moist buccal mucosa. Head is atraumatic, normocephalic. ABDOMEN: Soft. Nondistended. Nontender. NEUROLOGIC: Alert and oriented. Cranial nerves II through XII grossly intact. ASSESSMENT: 1. Right upper quadrant abdominal pain 2. Gallbladder hydrops and mild gallbladder wall thickening noted on abdominal ultrasound 3. Alcoholic hepatitis 4. Daily alcohol use PLAN: -Plan for outpatient cholecystectomy -Continue regular diet -Patient can be discharge from surgical standpoint and follow-up outpatient Physician Engine Test Cell Technician note has been reviewed by physician. Signing provider agrees with the documented findings, assessment, and plan of care. Objective - Vital Signs Vital signs: Vital Signs Temp 98.5 F 07/07/20 07:02 Pulse 61 07/07/20 08:43 Resp 14 07/07/20 08:43 BP 111/78 07/07/20 07:02 Pulse Ox 98 07/07/20 04:30 Intake & Output 07/06/20 07/07/20 07/07/20 18:59 06:59 18:59 Other: Voiding Method Toilet Toilet Toilet # Voids 2 3 # Bowel Movements 0 - Labs CBC & Chem 7: 07/07/20 07:16 07/07/20 07:16 Labs: Abnormal Lab Results - Last 24 Hours (Table) 07/06/20 07/06/20 07/07/20 Range/Units 07:09 07:09 07:16 RBC 2.53 L 2.63 L (4.40-5.60) X 10*6/uL Hgb 9.8 L 10.2 L (13.0-17.0) g/dL Hct 28.9 L 30.8 L (39.6-50.0) % MCV 114.2 H 117.1 H (80.0-97.0) fL MCH 38.7 H 38.8 H (27.0-32.0) pg Plt Count 118 L (140-440) X 10*3/uL Absolute Nucleated RBC 0.02 H (0.00-0.00) X 10*3/uL Immature Gran # 0.05 H (0.00-0.04) X 10*3/uL Eosinophils # 0.03 L 0.03 L (0.04-0.35) X 10*3/uL NRBC/100 WBC Diff 0.4 H (0.0-0.0) /100 WBCS BUN 7.0 L (9.0-27.0) mg/dL Creatinine 0.4 L (0.6-1.5) mg/dL Glucose 116 H (70-110) mg/dL Calcium 8.2 L (8.7-10.3) mg/dL Total Bilirubin 3.7 H (0.3-1.2) mg/dL AST 116 H (14-35) U/L ALT 58 H (10-49) U/L Alkaline Phosphatase 326 H (41-126) U/L Total Protein 4.9 L (6.2-8.2) g/dL Albumin 2.90 L (3.80-4.90) g/dL Albumin/Globulin Ratio 1.45 L (1.60-3.17) g/dL 07/07/20 Range/Units 07:16 RBC (4.40-5.60) X 10*6/uL Hgb (13.0-17.0) g/dL Hct (39.6-50.0) % MCV (80.0-97.0) fL MCH (27.0-32.0) pg Plt Count (140-440) X 10*3/uL Absolute Nucleated RBC (0.00-0.00) X 10*3/uL Immature Gran # (0.00-0.04) X 10*3/uL Eosinophils # (0.04-0.35) X 10*3/uL NRBC/100 WBC Diff (0.0-0.0) /100 WBCS BUN (9.0-27.0) mg/dL Creatinine (0.6-1.5) mg/dL Glucose 111 H (70-110) mg/dL Calcium 8.3 L (8.7-10.3) mg/dL Total Bilirubin 3.0 H (0.3-1.2) mg/dL AST 88 H (14-35) U/L ALT 54 H (10-49) U/L Alkaline Phosphatase 351 H (41-126) U/L Total Protein 5.2 L (6.2-8.2) g/dL Albumin 3.10 L (3.80-4.90) g/dL Albumin/Globulin Ratio 1.48 L (1.60-3.17) g/dL
[2020-07-07] MEDS: MULTIVITAMINS, THERA 1 EACH TAB PO SCH (12:37)
[2020-07-07 13:17] VITALS: BP 105/69; PULSE 67; RESP 15; TEMP 97.8
--- NOTE | 2020-07-07 15:21 | P.DS ---
Providers Date of admission: 07/04/20 13:42 Expected date of discharge: 07/07/20 Attending physician: David Morin Consults: 07/05/20 17:39 Consult Physician Routine Consulting Provider: Mingo Henderson Consult Reason/Comments: hydrops gall bladder Do you want consulting provider notified?: Yes Primary care physician: Stated None Hospital Course: Final diagnosis Acute alcoholic hepatitis as well as abdominal pain with hepatosplenomegaly Early delirium tremens, present on admission Elevated AST and ALT, acute alcoholic hepatitis Elevated alkaline phosphatase hydrops gallbladder as well as gallbladder thickening on ultrasound Mild coagulopathy secondary to chronic liver disease Anemia, macrocytic Thrombocytopenia history of EtOH History of nicotine dependence Full code Discharge disposition Patient is being discharged in a stable condition with guarded prognosis to home. Patient will follow-up with Dr. Sierra in the outpatient setting upon discharge. Patient will be going home with daughter. Patient to follow-up with [facility] on bed availability at the beginning of the week. Will continue with oral antibiotics in the form of Bactrim twice daily for the next 5 days. Total time taken is greater than 35 minutes. Hospital course This is a 50-year-old male who was recently admitted with acute alcohol withdrawal and delirium tremens and acute alcoholic hepatitis and was being closely monitored. Patient was maintained on [facility] protocol and was originally supposed to be discharged to [facility] although no bed is available at this time and patient will be going home with daughter and following up on Friday for bed availability with [facility]. Patient was seen and evaluated by surgery is computed tomography scan of the abdomen showed hydrops gallbladder. Surgery recommending outpatient cholecystectomy. Patient currently denies any withdrawal symptoms at this time. Had a lengthy discussion with the patient about refraining from alcohol and following up with [facility] on Friday for bed availability. Currently no reports of chest pain, shortness of breath, or palpitations. Patient is afebrile. No reports of nausea or vomiting and patient is tolerating diet. Patient is instructed to follow-up with primary care provider upon discharge and resources provided. Patient will be discharged home today. Guarded prognosis On exam vital signs are stable. Cardio S1, S2 are muffled. Respiratory system shows diminished breath sounds at the bases with no wheezing or rhonchi noted. Abdomen is soft and nontender. Nervous system shows no focal deficits. Please refer to medication reconciliation sheet for a list of medications. Patient Condition at Discharge: Stable Plan - Discharge Summary Discharge Rx Participant: No New Discharge Prescriptions: New Sulfamethox-Tmp 800-160Mg [Bactrim DS 800-160 mg] 1 each PO BID 5 Days #10 tab Folic Acid 1 mg PO DAILY 30 Days #30 tab Ibuprofen [Motrin] 400 mg PO Q6HR PRN #30 tab PRN Reason: Pain Multivitamins, Thera [Multivitamin (formulary)] 1 each PO DAILY@1200 30 Days #30 tab Thiamine [Vitamin B-1] 100 mg PO BID-W/MEALS 30 Days #60 tab Discharge Medication List Folic Acid 1 mg PO DAILY 30 Days #30 tab 07/07/20 [Rx] Ibuprofen [Motrin] 400 mg PO Q6HR PRN #30 tab 07/07/20 [Rx] Multivitamins, Thera [Multivitamin (formulary)] 1 each PO DAILY@1200 30 Days #30 tab 07/07/20 [Rx] Sulfamethox-Tmp 800-160Mg [Bactrim DS 800-160 mg] 1 each PO BID 5 Days #10 tab 07/07/20 [Rx] Thiamine [Vitamin B-1] 100 mg PO BID-W/MEALS 30 Days #60 tab 07/07/20 [Rx] Follow up Appointment(s)/Referral(s): Volodymyr Sierra MD [REFERRING] - 1-2 Days Yaritza Preston MD [STAFF PHYSICIAN] - 2 Weeks Mingo Henderson MD [STAFF PHYSICIAN] - 1 Week Patient Instructions/Handouts: Cirrhosis (DC), Abuse of Alcohol (DC) Activity/Diet/Wound Care/Special Instructions: Patient will be discharging home with daughter Continue with regular diet Follow-up with primary care provider upon discharge Follow-up with GI outpatient Follow-up outpatient with surgery Avoid all alcohol Continue with antibiotics for 5 days and then may discontinue Patient to call [facility] to establish when a bed is available Discharge Disposition: HOME SELF-CARE
== END 2020-07-07 14:10 | disposition home or self-care (01) | DRG 433 ==
LOC: EC 11:27 → 5NMEDONC 13:42
PROVIDERS: ADMIT Internal Medicine; ATTEND Internal Medicine
DX: K70.10 Alcoholic hepatitis without ascites (principal); K82.1 Hydrops of gallbladder; F10.131 Alcohol abuse with withdrawal delirium; D68.4 Acquired coagulation factor deficiency; K76.6 Portal hypertension; K70.30 Alcoholic cirrhosis of liver without ascites; Z20.822 Contact with and (suspected) exposure to COVID-19; D53.9 Nutritional anemia, unspecified; F17.200 Nicotine dependence, unspecified, uncomplicated; D69.59 Other secondary thrombocytopenia; K76.0 Fatty (change of) liver, not elsewhere classified; R16.2 Hepatomegaly with splenomegaly, not elsewhere classified
CPT/HCPCS: 36415; 71045; 74176; 76705; 80053; 80074; 81003; 82150; 82248; 83690; 83735; 85025; 85610; 85730; 87635; 96372; 99285